=== PATIENT | female | born 1995 | race Caucasian/White ===

== ENCOUNTER 2018-08-04 00:16 | Day surgery (SDC) | payer OTHER ==
[2018-08-04] VITALS (7 sets, daily range): BP systolic 82–94; BP diastolic 44–51; PULSE 52–94; TEMP 98.4–98.6
--- NOTE | 2018-08-04 01:15 | NUR ---
FROM OR PACU AFTER D&C ALERT ORIENTED. IV TO RT AC. SCANT DK RED ON PERIPAD. DENIES PAIN. SISTER COMING FROM WAITING AREA. PLAN OF CARE REVIEWED CRaCKERS AND SPRITE GIVEN
[2018-08-04] MEDS ORDERED: IBU600 MG PO (01:20)
== END 2018-08-04 08:55 | disposition home or self-care (01) ==
LOC: SDCO 00:16 → OB 00:17 → SDCO 08:55
DX: O03.4 Incomplete spontaneous abortion without complication (principal)
CPT/HCPCS: OP; J2405; J2704; J3010

== ENCOUNTER → 2019-10-19 | Outpatient (CLI) | payer OTHER ==
[~2019-10-19] MED LIST: IBU600 MG PO
== END ==
LOC: COL.RAD 12:30
DX: S93.411A Sprain of calcaneofibular ligament of right ankle, initial encounter (principal); S93.491A Sprain of other ligament of right ankle, initial encounter; M65.9 Synovitis and tenosynovitis, unspecified